=== PATIENT | male | born 1985 | race Caucasian/White ===

== ENCOUNTER 2019-10-27 22:13 | Emergency (ER) | payer OTHER ==
[~2019-10-27] VITALS: Ht 180.3 cm; Wt 68.0 kg
[2019-10-27] MEDS ORDERED: LORAZEPAM 0.5 MG TABLET PO ONE (22:30)
[2019-10-27] MEDS ORDERED: LORAZEPAM 0.5 MG TABLET ONE (22:33)
--- NOTE | 2019-10-27 22:35 | NUR ---
JSIEND FROM HOME TO ER BED 2. AAOX4. NOT IN RESP DISTRESS. AMBULATORY. CAME IN FOR RACING HEART, TREMBLING AND TWITCHING. PER PT, HE HAS BEEN HAVING PANIC ATTACKS FOR THE PAST SEVERAL DAYS. PT HAS IN NOTED VERY ANXIEIOUS AND TREMBLING. PT DID ADMIT DRUG USE AND HAD "MUSHROOMSS" YESTERDAY. ON TOP OF THAT PT IS A DAILY DRINKER REPORTED AT 10 DRINKS AT LEAST PER DAY. PT IS PLACED ON MONITOR, NOTED SINUS BUT IRREGULAR. PT DENIES CHEST PAIN NOR SOB. MD WAS AT THE BEDSIDE FOR EVAL. ORDERS RECEIVED NOTED AND CARRIED OUT. EMT AT BEDSIDE FOR EKG WELL FEED MANAGEMENT ADVISOR FOR BLOOD DRAW.
--- NOTE | 2019-10-27 23:35 | NUR ---
PT VERBALIZED THAT HE FEELS BETTER. PT IS NO LONGER TREMBLING.
--- NOTE | 2019-10-27 23:36 | NUR ---
Patient discharged to home in stable condition. Written and verbal after care instructions given. Patient verbalizes understanding of instruction. Pt ambulatory with a steady gait
[2019-10-27 23:37] VITALS: BP 146/98
== END 2019-10-27 23:37 | disposition home or self-care (01) ==
LOC: ER 22:16
DX: F41.9 Anxiety disorder, unspecified (principal); R00.2 Palpitations; R25.1 Tremor, unspecified
CPT/HCPCS: 36415; 84443-TC